=== PATIENT | male | born 1930 | race Caucasian/White ===

== ENCOUNTER 2020-12-30 23:14 | Emergency (ER) | payer MEDICARE, OTHER ==
[~2020-12-30] VITALS: Ht 180.3 cm; Wt 78.9 kg
[2020-12-30] MEDS ORDERED: LIDOCAINE HCL 1% LOCAL INJ 20 ML VIAL INJ ONE (23:45)
[2020-12-30] MEDS ORDERED: RABIES IMMUNE GLOBULIN/PF 150 UNIT/ML VIAL IM ONE (23:45)
[2020-12-30] MEDS ORDERED: RABIES VAC,PF CHICK-EMB CELL 2.5/KIT IM ONE (23:45)
[2020-12-31] MEDS ORDERED: DOXYCYCLINE HY100 MG PO (00:20)
[2020-12-31] MEDS ORDERED: HYDROCODONE/APAP 5MG-325MG TAB ONE (00:42)
[2020-12-31] MEDS ORDERED: DOXYCYCLINE HYCLATE TABLET 100 MG TAB PO STA (01:52)
[2020-12-31] MEDS ORDERED: ACETAMINOPHEN-1 EAC4 PO (01:56)
== END 2020-12-31 02:10 | disposition home or self-care (01) ==
LOC: ER 23:38
DX: S52.502A Unspecified fracture of the lower end of left radius, initial encounter for closed fracture (principal); S61.451A Open bite of right hand, initial encounter; W54.0XXA Bitten by dog, initial encounter; Y92.89 Other specified places as the place of occurrence of the external cause
CPT/HCPCS: 12002; 29125; 70450; 72125; 73110; 73130 ×2; 73562; 99283; J2001

== ENCOUNTER 2021-01-02 17:08 | Emergency (ER) | payer MEDICARE, OTHER ==
[~2021-01-02] VITALS: Ht 180.3 cm; Wt 78.9 kg
[~2021-01-02 17:08] MED LIST: ACETAMINOPHEN-1 EAC4 PO; DOXYCYCLINE HY100 MG PO
[2021-01-02] MEDS ORDERED: DOXYCYCLINE MO100 M1 PO (17:50)
== END 2021-01-02 18:35 | disposition home or self-care (01) ==
LOC: ER 17:35
DX: Z47.89 Encounter for other orthopedic aftercare (principal); M79.89 Other specified soft tissue disorders
CPT/HCPCS: 99283

== ENCOUNTER 2021-01-21 08:55 | Emergency (ER) | payer MEDICARE, OTHER ==
[~2021-01-21] VITALS: Ht 180.3 cm; Wt 78.9 kg
[~2021-01-21 08:55] MED LIST changes: +DOXYCYCLINE MO100 M1 PO
[2021-01-21 11:01] LABS: BASOPHILS % 0.2 % (0.0-1.0); HEMATOCRIT 41.1 % (38.2-49.6); HEMOGLOBIN 13.8 g/dL (14.0-18.0); LYMPHOCYTES % 6.8 % (18.0-39.1); MEAN CORPUSCULAR HEMOGLOBIN 32.1 pg (28-32); MEAN CORPUSCULAR HGB CONC 33.6 g/dL (31-35); MEAN CORPUSCULAR VOLUME 95.6 fL (81-99); MONOCYTES # (AUTO) 1.3 (0.2-0.8); MONOCYTES % 9.4 % (4.4-11.3); NEUTROPHILS # (AUTO) 11.7 (2.1-6.9); NEUTROPHILS % 83.2 % (38.7-80.0); PLATELET COUNT 272 x10e3/uL (140-360); RED CELL DISTRIBUTION WIDTH 13.8 % (11.7-14.4)
[2021-01-21 11:20] LABS: ALBUMIN 3.9 g/dL (3.5-5.0); ALBUMIN/GLOBULIN RATIO 1.1 (0.8-2.0); ANION GAP 20.5 mmol/L (8-16); CREATININE, SERUM 3.53 mg/dL (0.72-1.25); POTASSIUM 4.5 mmol/L (3.5-5.1)
[2021-01-21 12:23] LABS: INR 1.06; PROTHROMBIN TIME 14.7 seconds (11.9-14.5)
[2021-01-21 12:24] LABS: PARTIAL THROMBOPLASTIN TIME 31.3 seconds (23.8-35.5)
[2021-01-21] MEDS ORDERED: IOPAMIDOL 300MG/ML 100 ML INFUS..BTL IV ONE (12:27)
[2021-01-21] MEDS ORDERED: SODIUM CHLORIDE 0.9% 1000ML 1,000 ML ONE (13:07)
[2021-01-21] MEDS ORDERED: FENTANYL CITRATE/PF 100MCG/2 ML INJ ONE (13:40)
[2021-01-21] MEDS ORDERED: MIDAZOLAM HCL 2 MG/2 ML VIAL ONE (13:40)
[2021-01-21] MEDS ORDERED: SODIUM CHLORIDE 0.9% 500ML 500 ML ONE (13:43)
[2021-01-21 13:55] VITALS: BP 128/81
[2021-01-21 14:05] VITALS: BP 134/82
[2021-01-21 14:11] LABS: CLARITY,URINE CLOUDY (CLEAR); COLOR,URINE YELLOW (YELLOW); KETONES,URINE TRACE (NEGATIVE); LEUKOCYTE ESTERASE ,URINE SMALL (NEGATIVE); NITRITE,URINE NEGATIVE (NEGATIVE); PROTEIN,URINE DIPSTICK 2+ (NEGATIVE); URINE UROBILINOGEN 0.2 mg/dL (0.2 - 1)
[2021-01-21 14:14] LABS: BACTERIA,URINE FEW /HPF; WBC,URINE (MAN) >50 /HPF (0-5)
== END 2021-01-21 16:38 | disposition left against medical advice (07) ==
LOC: ER 09:03
DX: N17.9 Acute kidney failure, unspecified (principal); R33.9 Retention of urine, unspecified; R73.9 Hyperglycemia, unspecified; Z20.822 Contact with and (suspected) exposure to COVID-19
CPT/HCPCS: 36415; 51102; 74470; 76942; 80053; 81001; 85025; 85610; 85730; 87086; 94799; 99284; J2250; J3010; J7030; J7040; Q9967; U0002

== ENCOUNTER 2021-01-28 12:48 | Emergency (ER) | payer MEDICARE, OTHER ==
[~2021-01-28] VITALS: Ht 180.3 cm; Wt 78.9 kg
== END 2021-01-28 13:45 | disposition home or self-care (01) ==
LOC: ER 12:52
DX: Z46.6 Encounter for fitting and adjustment of urinary device (principal)
CPT/HCPCS: 99282

== ENCOUNTER 2021-02-24 04:14 | Observation (INO) | payer MEDICARE, OTHER ==
[~2021-02-24] VITALS: Ht 180.3 cm; Wt 78.9 kg
[2021-02-24 05:04] LABS: BASOPHILS # (AUTO) 0.1 (0.0-0.1); BASOPHILS % 0.7 % (0.0-1.0); EOSINOPHILS # (AUTO) 0.3 (0.0-0.4); EOSINOPHILS % 4.4 % (0.0-6.0); HEMATOCRIT 33.9 % (38.2-49.6); HEMOGLOBIN 11.4 g/dL (14.0-18.0); LYMPHOCYTES # (AUTO) 1.5 (1.0-3.2); LYMPHOCYTES % 21.6 % (18.0-39.1); MEAN CORPUSCULAR HEMOGLOBIN 32.4 pg (28-32); MEAN CORPUSCULAR HGB CONC 33.6 g/dL (31-35); MEAN CORPUSCULAR VOLUME 96.3 fL (81-99); MONOCYTES # (AUTO) 0.6 (0.2-0.8); MONOCYTES % 8.9 % (4.4-11.3); NEUTROPHILS # (AUTO) 4.5 (2.1-6.9); NEUTROPHILS % 64.3 % (38.7-80.0); PLATELET COUNT 254 x10e3/uL (140-360); RED BLOOD COUNT 3.52 x10e6/uL (4.3-5.7); RED CELL DISTRIBUTION WIDTH 14.7 % (11.7-14.4)
[2021-02-24 05:14] LABS: INR 1.02; PROTHROMBIN TIME 14.2 seconds (11.9-14.5)
[2021-02-24 05:15] LABS: PARTIAL THROMBOPLASTIN TIME 29.2 seconds (23.8-35.5)
[2021-02-24 05:18] LABS: ANION GAP 12.8 mmol/L (8-16); CALCIUM 8.5 mg/dL (8.4-10.2); CREATININE, SERUM 0.8 mg/dL (0.72-1.25); POTASSIUM 3.8 mmol/L (3.5-5.1)
[2021-02-24 06:25] LABS: COLOR,URINE YELLOW (YELLOW); LEUKOCYTE ESTERASE ,URINE SMALL (NEGATIVE)
[2021-02-24 06:26] LABS: KETONES,URINE NEGATIVE (NEGATIVE); NITRITE,URINE POSITIVE (NEGATIVE); PROTEIN,URINE DIPSTICK 2+ (NEGATIVE); URINE UROBILINOGEN 0.2 mg/dL (0.2 - 1)
[2021-02-24 06:27] LABS: CLARITY,URINE CLOUDY (CLEAR)
[2021-02-24 06:30] LABS: BACTERIA,URINE FEW /HPF; EPITHELIAL CELLS,URINE FEW /LPF; RBC,URINE >50 /HPF (0-5); WBC,URINE (MAN) >50 /HPF (0-5)
[2021-02-24] MEDS ORDERED: CEFEPIME 1 GM in SODIUM CHLORIDE 0.9% 50ML 50 ML IV STA (08:51)
[2021-02-24 10:00] VITALS: BP 154/87
[2021-02-24] MEDS ORDERED: FLOMAX0.4 MG PO (10:04)
[2021-02-24 10:20] VITALS: BP 154/87
[2021-02-24 10:35] VITALS: BP 154/87
[2021-02-24] MEDS ORDERED: LIDOCAINE HCL 1% LOCAL INJ 20 ML VIAL ONE (11:49)
[2021-02-24] MEDS ORDERED: SODIUM CHLORIDE 0.9% 250ML 250 ML ONE (11:49)
[2021-02-24] MEDS ORDERED: IOPAMIDOL 300MG/ML 100 ML INFUS..BTL IV ONE (11:57)
[2021-02-24] MEDS ORDERED: FENTANYL CITRATE/PF 100MCG/2 ML INJ ONE (12:11)
[2021-02-24] MEDS ORDERED: IRR ONE (12:28)
[2021-02-24] MEDS ORDERED: SODIUM CHLORIDE 0.9% ONE (12:28)
[2021-02-24] MEDS ORDERED: CEFEPIME 1 GM in SODIUM CHLORIDE 0.9% 50ML 50 ML IV ONE (13:00)
[2021-02-24 13:20] VITALS: BP 132/83
[2021-02-24 13:31] LABS: CLARITY,URINE CLOUDY (CLEAR); COLOR,URINE YELLOW (YELLOW); KETONES,URINE NEGATIVE (NEGATIVE); LEUKOCYTE ESTERASE ,URINE 2+ (NEGATIVE); NITRITE,URINE NEGATIVE (NEGATIVE); PROTEIN,URINE DIPSTICK 2+ (NEGATIVE); URINE UROBILINOGEN 0.2 mg/dL (0.2 - 1)
[2021-02-24 13:52] LABS: BACTERIA,URINE MANY /HPF; EPITHELIAL CELLS,URINE FEW /LPF; RBC,URINE >50 /HPF (0-5); WBC,URINE (MAN) >50 /HPF (0-5)
== END 2021-02-24 14:06 | disposition home or self-care (01) ==
LOC: ER 04:49 → ERHOLD 08:51 → MED/SURG3 09:46
PROVIDERS: ADMIT Internal Medicine; ATTEND Internal Medicine
DX: T83.090A Other mechanical complication of cystostomy catheter, initial encounter (principal); N40.1 Benign prostatic hyperplasia with lower urinary tract symptoms; R33.8 Other retention of urine; N39.0 Urinary tract infection, site not specified; I10 Essential (primary) hypertension; Z20.822 Contact with and (suspected) exposure to COVID-19
CPT/HCPCS: 36415; 51102; 51705; 72192; 74470; 77002; 80048; 81001; 82948; 85025; 85610; 85730; 87086; 87186; 99284; G0378; J0692; J2001; J3010; J7050; Q9967; U0002

== ENCOUNTER 2021-04-20 20:13 | Emergency (ER) | payer MEDICARE, OTHER ==
[~2021-04-20] VITALS: Ht 332.7 cm; Wt 78.9 kg
[~2021-04-20 20:13] MED LIST changes: +FLOMAX0.4 MG PO
[2021-04-20 21:23] LABS: CLARITY,URINE TURBID (CLEAR); COLOR,URINE BROWN (YELLOW); KETONES,URINE NEGATIVE (NEGATIVE); LEUKOCYTE ESTERASE ,URINE SMALL (NEGATIVE); NITRITE,URINE NEGATIVE (NEGATIVE); PROTEIN,URINE DIPSTICK >=300 (NEGATIVE); URINE UROBILINOGEN 1 mg/dL (0.2 - 1)
[2021-04-20 21:34] LABS: BACTERIA,URINE MODERATE /HPF; RBC,URINE >50 /HPF (0-5)
[2021-04-20] MEDS ORDERED: BACTRIM DS TAB1 EACH PO (21:41)
[2021-04-20] MEDS ORDERED: TRIMETHOPRIM/SULFAMETHOXAZOLE 160-800 MG TAB PO ONE (21:45)
[2021-04-20] MEDS ORDERED: CEPHALEXIN 500 MG CAP PO SCH (21:45)
[2021-04-20] MEDS ORDERED: TRIMETHOPRIM/SULFAMETHOXAZOLE 160-800 MG TAB ONE (21:57)
[2021-04-20 22:06] VITALS: BP 132/85
== END 2021-04-20 22:08 | disposition home or self-care (01) ==
LOC: ER 20:31
DX: Z46.6 Encounter for fitting and adjustment of urinary device (principal); R33.9 Retention of urine, unspecified; N39.0 Urinary tract infection, site not specified
CPT/HCPCS: 81001; 87086; 99283